=== PATIENT | male | born 1935 | race Caucasian/White ===

== ENCOUNTER 2021-09-17 08:29 | Outpatient (CLI) | payer OTHER ==
[~2021-09-17] VITALS: Ht 182.9 cm; Wt 106.6 kg
[2021-09-17] MEDS ORDERED: albuterol 2.5 MG/3 ML nebule NEB PRN (08:55)
== END 2021-09-17 23:59 | disposition home or self-care (01) ==
LOC: RT 08:29
PROVIDERS: ATTEND Chiropractor
DX: J44.9 Chronic obstructive pulmonary disease, unspecified (principal); F17.210 Nicotine dependence, cigarettes, uncomplicated; Z79.899 Other long term (current) drug therapy
CPT/HCPCS: 94060; 94760

== ENCOUNTER 2021-10-15 13:38 | Outpatient (CLI) | payer OTHER | END 2021-10-15 23:59 | disposition home or self-care (01) | LOC: RAD 13:38 | PROVIDERS: ATTEND Chiropractor | DX: I51.7 Cardiomegaly (principal); J44.9 Chronic obstructive pulmonary disease, unspecified | CPT/HCPCS: 71046 ==